=== PATIENT | female | born 1935 | race Caucasian/White ===

== ENCOUNTER 2019-08-18 12:33 | Inpatient (IN) | payer OTHER ==
[~2019-08-18] VITALS: Ht 157.5 cm; Wt 92.5 kg
[2019-08-18 12:39] VITALS: BP 158/55
[2019-08-18] MEDS ORDERED: ATORVASTATIN CA80 MG PO (13:08)
[2019-08-18] MEDS ORDERED: CARVEDILOL12.5 MG PO (13:08)
[2019-08-18] MEDS ORDERED: MICARDIS40 MG PO (13:08)
[2019-08-18] MEDS ORDERED: AMLODIPINE BESY10 MG PO (13:08)
[2019-08-18] MEDS ORDERED: FISH OIL 1,0001 EAC9 PO (13:09)
[2019-08-18] MEDS ORDERED: ZYRTEC10 M5 PO (13:09)
[2019-08-18] MEDS ORDERED: OMEPRAZOLE 20 M20 M1 PO (13:09)
[2019-08-18] MEDS ORDERED: ASA81BEC PO (13:09)
[2019-08-18] MEDS ORDERED: CO Q-10400 MG PO (13:09)
[2019-08-18] MEDS ORDERED: MIRAPEX0.125 MG PO (13:09)
[2019-08-18 13:14] LABS: ABSOLUTE BASOPHILS 0.1 thou/uL (0.0-0.2); ABSOLUTE EOSINOPHILS 0.2 thou/uL (0.0-0.7); ABSOLUTE LYMPHOCYTES 1.5 thou/uL (0.8-5.3); ABSOLUTE MONOCYTES 0.7 thou/uL (0.0-1.2); BASOPHILS 0.8 %; HEMATOCRIT 41.5 % (37.0-47.0); HEMOGLOBIN 14.1 gm/dL (12.0-15.0); LYMPHOCYTES 20.5 %; MCH 31.7 pg (26.0-34.0); MCHC 33.9 g/dL (28.0-37.0); MCV 93.5 fL (80.0-100.0); MPV 8.1 fl. (7.2-11.1); NUCLEATED RBCS 0 /100WBC; PLATELET COUNT* 234 thou/uL (150-400); POLYS 66.7 %; RBC 4.44 mil/uL (4.20-5.00); RDW-CV 14.6 % (10.5-14.5); WBC 7.4 thou/uL (4.0-11.0)
[2019-08-18] MEDS ORDERED: FAMOTIDINE 20 M20 MG PO (13:15)
[2019-08-18 13:25] LABS: CALCIUM 8.6 mg/dL (8.5-10.1); CREATININE 0.6 mg/dL (0.6-1.3); POTASSIUM 4.2 mmol/L (3.5-5.1)
[2019-08-18 13:26] LABS: APTT 25.7 Seconds (25.0-31.3); PROTIME 10.7 Seconds (9.20-11.50)
[2019-08-18 13:30] LABS: ALBUMIN 3.5 g/dL (3.4-5.0); TOTAL BILIRUBIN 0.4 mg/dL (<0.1-1.0); TOTAL PROTEIN 7.3 g/dL (6.4-8.2)
--- NOTE | 2019-08-18 13:46 | EKG ---
[place] [address] ELECTROCARDIOGRAM REPORT Name: OMAYRA CATHERINE Room: [facility]#: [id number] Admission: 08/18/19 Attend Phys: Discharge: Date of : 37 Date of Service: 08/18/19 1257 Report #: [id number] THIS REPORT FOR: //name// [facility] ED Test Date: 2019-08-18 Test Time: 12:57:36 Pat Name: OMAYRA CATHERINE Department: Room: Gender: [facility] Nurse: : [id number] Requested By: Gab Clement Order Number: [id number] MD: Deonte Gannon Measurements Intervals [place] Rate: 73 P: 59 OK: 177 QRS: -5 QRSD: 89 T: 33 QT: 411 QTc: 453 Interpretive Statements Sinus rhythm baseline wander No previous ECG available for comparison Electronically Signed On 08-18-2019 13:45:45 CDT by Deonte Gannon [email or web address] <ELECTRONICALLY SIGNED> By: Deonte Gannon MD, [facility] 08/18/19 1345 1257 1257 Deonte Gannon MD, FACC /EPI
[2019-08-18 17:54] LABS: URINE BILIRUBIN NEGATIVE (Negative); URINE BLOOD NEGATIVE (Negative); URINE CLARITY CLEAR; URINE COLOR YELLOW; URINE GLUCOSE-RANDOM NEGATIVE (Negative); URINE KETONES NEGATIVE (Negative); URINE LEUKOCYTES-REFLEX 1+ (Negative); URINE NITRITE-REFLEX NEGATIVE (Negative); URINE PROTEIN NEGATIVE (Negative); URINE SPECIFIC GRAVITY 1.015 (1.005-1.030); URINE UROBILINOGEN 0.2 E.U./dl (0.2-1.0)
[2019-08-18 18:14] LABS: BACTERIA-REFLEX >30 Many /HPF (None Seen); CASTS None Seen /LPF (None Seen); CRYSTALS None Seen /LPF (None Seen); SQUAMOUS 0-3 Few /LPF (0-3); TRANSITIONAL EPITHEL CELL 4-10 Moderate /LPF (None Seen); URINE RBC 0-2 Rare /HPF (0-2)
[2019-08-18 21:17] VITALS: BP 144/48; BP 148/50
[2019-08-18 21:46] VITALS: BP 140/45
[2019-08-19 04:00] VITALS: BP 155/56
--- NOTE | 2019-08-19 04:24 | NUR ---
ASSUMED CARE OF PT 08/18/19 AT APPROX 2100. PT A&OX4, ON 4L NC, VSS, PT HAS NOT BEEN UP SINCE ADMITTED. PT IN ISOLATION - PENDING COVID19 TEST. PAIN MEDS REQUESTED AND GIVEN ORDERED. PT SLEEPING WELL. WILL CONTINUE WITH PLAN OF CARE.
[2019-08-19 08:00] VITALS: BP 111/58
[2019-08-19 08:12] VITALS: BP 130/55
[2019-08-19 13:14] VITALS: BP 160/72
--- NOTE | 2019-08-19 16:50 | NUR ---
PATIENT RESTING IN BED. VSS AND PATINET IN NON APPARNET SIGNS OF DISTRESS T THIS TIME. UP WITH ASSISTX1 AND WALKER. REPORTS BACK PAIN R/T RECENT FALL. HOURLY ROUNDING COMPLETD FOR PATIENT SAFETY
[2019-08-19 20:00] VITALS: BP 156/61
[2019-08-20] VITALS: BP 100/50
--- NOTE | 2019-08-20 05:12 | NUR ---
No acute event this shift. Pt Aox3, forgetful. Pt noted confusion, easy to redirect/ frequent reorientation done. Pt on 4L NC sat low 90's. Pt complain of back and hip pain. Pain meds given (see mar), with partial relief. "Pt state it hurts when I moved". Pt up with assist, uses commode. Bed alarm, call light within reach. On enhanced Isolation for pending covid result. Will continue to monitor.
[2019-08-20 08:14] VITALS: BP 171/57
[2019-08-20 12:00] VITALS: BP 143/41
[2019-08-20 16:00] VITALS: BP 135/43
--- NOTE | 2019-08-20 16:49 | NUR ---
PT NEG FOR COVID 19. CONFUSED AND FORGETFUL AT TIMES. AT BEDSIDE.
[2019-08-20 20:00] VITALS: BP 149/53
[2019-08-21] VITALS: BP 159/54
--- NOTE | 2019-08-21 07:07 | NUR ---
ASSUMED CARE OF PT AFTER REPORT AT 1930. PT A&OX3. FORGETFUL & CONFUSED AT TIMES. VSS. PHYSICAL ASSESSMENT COMPLETED AND CHARTED. PT ON O2 AT 3L NC. PT ON MEDSURG STATUS. PT UP WITH 1-2 ASSIST TO BSC. PT COMPLAINED OF BACK & HIP PAIN-MED GIVEN PER APR. PT REFUSED TURNS EVEN AFTER EDUCATION. CALL LIGHT WITHIN REACH.
[2019-08-21 08:00] VITALS: BP 152/54
[2019-08-21] MEDS ORDERED: LEVAQUIN 500 M500 M3 PO (10:02)
[2019-08-21 12:00] VITALS: BP 153/56
--- NOTE | 2019-08-21 12:36 | NUR ---
Pt is A&O. Resides at [facility] with her . Independent. No DME. No hx of HH or SNF. wants Pt to attend outpt PT at Dr jarvis kelly. Discharging to home today.
[2019-08-21 13:09] VITALS: BP 152/54
--- NOTE | 2019-08-21 13:15 | NUR ---
ASSUMED PT CARE AT 0730, PT RESTING IN BED AND STATES SHE DID NOT GET HER MEDS YESTERDAY. AFTER LOOKING IN [employer], I REASSURED PT THAT SHE DID GET MEDS. SHE WAS ALERT AND ORIENTED TO SELF AND PLACE BUT CONFUSED ABOUT POC AND TIME. PT'S CAME UP AFTER BREAKFAST AND PLACED SOME TYPE OF PAIN PATCHES ON PT'S BACK AND STATES HE GAVE HER HER MEDS. I ASKED HIM WHICH MEDS HE GAVE PT, HE STATES "ALL OF THE ONES YOU WERE GOING TO GIVE" BUT WOULDN'T SPECIFY EXACTLY WHICH MEDS. ALL MORNING MEDS WERE HELD SINCE I WASN'T SURE WHAT HE GAVE HER AND EXPLAINED THIS TO BOTH AND PT. LIDOCAINE PATCH STILL APPLIED AND IV ABX HUNG. PT IS WEAK WHEN GETTING UP AND MOVING HERSELF AROUND IN BED BUT DOES OKAY WITH OR NURSE ASSIST. PT GOAL IS TO DC TO HOME TODAY. AM ASSESSMENT CHARTED, MEDS PER MAR, HOURLY ROUNDING OBSERVED, FALL PRECAUTIONS IN PLACE, CALL LIGHT W/IN REACH, WILL CONTINUE POC.
[2019-08-21 14:21] VITALS: BP 152/54
--- NOTE | 2019-08-21 16:26 | NUR ---
DC ORDERS RECEIVED. DC INSTRUCTIONS, CARE NOTES, SCRIPTS AND F/U APPTS. GIVEN TO PT, PT COMMUNICATES UNDERSTANDING OF DC TEACHING. IV REMOVED. PT DC'D BY WC W/ NURSING STAFF TO 'S PERSONAL VEHICLE AT APPROX 1500.
== END 2019-08-21 15:00 | disposition home or self-care (01) | DRG 177 ==
LOC: M.ERS 12:33 → M.2W 16:52 → M.TBA-ER 16:52 → M.2W 21:00
PROVIDERS: Family Medicine; ADMIT Internal Medicine; ATTEND Internal Medicine
DX: J15.6 Pneumonia due to other Gram-negative bacteria (principal); J96.01 Acute respiratory failure with hypoxia; S92.424A Nondisplaced fracture of distal phalanx of right great toe, initial encounter for closed fracture; I25.10 Atherosclerotic heart disease of native coronary artery without angina pectoris; E78.5 Hyperlipidemia, unspecified; K21.9 Gastro-esophageal reflux disease without esophagitis; E78.00 Pure hypercholesterolemia, unspecified; S39.012A Strain of muscle, fascia and tendon of lower back, initial encounter; S90.121A Contusion of right lesser toe(s) without damage to nail, initial encounter; M21.371 Foot drop, right foot; I10 Essential (primary) hypertension; W19.XXXA Unspecified fall, initial encounter; Z20.828 Contact with and (suspected) exposure to other viral communicable diseases; Z86.73 Personal history of transient ischemic attack (TIA), and cerebral infarction without residual deficits; Y93.89 Activity, other specified; Y92.89 Other specified places as the place of occurrence of the external cause; Y99.8 Other external cause status; Z79.82 Long term (current) use of aspirin; Z79.899 Other long term (current) drug therapy

== ENCOUNTER → 2020-05-01 | Outpatient (CLI) | payer OTHER ==
[~2020-05-01] MED LIST: AMLODIPINE BESY10 MG PO; ASA81BEC PO; ATORVASTATIN CA80 MG PO; CARVEDILOL12.5 MG PO; CO Q-10400 MG PO; FAMOTIDINE 20 M20 MG PO; FISH OIL 1,0001 EAC9 PO; LEVAQUIN 500 M500 M3 PO; MICARDIS40 MG PO; MIRAPEX0.125 MG PO; OMEPRAZOLE 20 M20 M1 PO; ZYRTEC10 M5 PO
== END ==
LOC: M.LAB 14:04
PROVIDERS: ATTEND Surgery
DX: Z01.812 Encounter for preprocedural laboratory examination (principal); Z20.822 Contact with and (suspected) exposure to COVID-19; L02.213 Cutaneous abscess of chest wall